=== PATIENT | male | born 1995 | race Caucasian/White ===

== ENCOUNTER 2024-10-15 17:43 | Emergency (ER) | payer OTHER, SELFPAY ==
--- OUTSIDE RECORDS SUMMARY | 2024-10-15 17:45 | XMS_ITS | Clinical Summary ---
Author Organization [facility] Address [place], [place] [address] Care Team Providers Care Binder Stripper Machine Name Role Phone Gabo Garcia Primary Care Provider [phone] Allergies No known active allergies Medications * This document contains information received from the source organization and may not represent a complete record from that organization. ondansetron (ZOFRAN ODT) 4 mg disintegrating tabletIndications:N ausea and vomiting, unspecified vomiting type Place 1 Tablet (4 mg) on the tongue every 8 hours if needed for Nausea/Vomi ting. 12 Tablet 2 Active Active Problems No known active problems Immunizations Name Administration Dates Next Due Influenza A (H1N1), Inactivated 10/16/2009 Tdap 05/18/2015 Family History Medical History Relation Name Comments Crohn's disease Mother Hemophilia Son Relation Name Status Comments Mother Son Social History Tobacco Use Types Packs/Day Years Used Date Smoking Tobacco: Never Smokeless Tobacco: Current Chew Tobacco Cessation:Ready to Q uit: Yes; Counseling Given: Yes Alcohol Use Standard Drinks/Week Comments Yes 0 (1 standard drink = 0.6 oz pur e alcohol) PHQ-2 Answer Date Recorded PHQ-2 TOTAL SCORE 0 10/08/2020 Social Connections Answer Date Recorded Frequency of Communication with Friends and Fami ly Not on file 10/02/2021 Financial Resource Strain Answer Date R ecorded Difficulty of Paying Living Expenses Not on file 10/02/2021 Difficulty of Paying Living Expenses Not on file 10/02/2021 Sex and Gender Information Value Date Recorded Sex Assigned at Not on file Legal Sex Male 7:38 AM CROSSING GUARD Gender Identity Not on file Sexual Orientation Not on file Obstetrics History Last Filed Vital Signs Vital Sign Reading Time Taken Comments Blood Pressure 148/88 02/01/2022 2:14 PM CDT Pulse 69 02/01/2022 2:14 PM CDT Temperature 37.1 C (98.8 F) 02/01/2022 2:09 PM CDT Respiratory Rate 16 10/05/2021 1:27 PM CROSSING GUARD Oxygen Saturation 99% 02/01/2022 2:09 PM CDT Inhaled Oxygen Concentration - - Weight 70.9 kg (156 lb 3.2 oz) 02/01/2022 2:09 P M CDT Height 167.7 cm (5' 6.02) 05/08/2019 4:24 PM CD T Body Mass Index 25.19 05/08/2019 4:24 PM CDT Plan of Treatment Health Maintenance Due Date Last Done Comments HIV for age 15-65 2008 Hepatitis C screening for ag e 18-79 2011 BMI (ht and wt on same day) for age 18+ 05/08/2020 05/08/2019 Depression screening for age 12+ 10/08/2021 10/08/19 21 COVID-19 vaccine series (2023- season) 2024 Influenza for age 9-49 06/02/2024 10/16/2009 Tetanus booster 05/18/2025 05/18/2015 Tdap Completed 05/18/2015 Pneumococcal series for age 6-49 Aged Out No longer eligible based on patient's age to complete this topic [place] [address] [employer] Care Teams Binder Stripper Machine Relationship Specialty Start Date End Date Gabo Garcia [address] [place] [id number] PCP - General 03/15/09
[2024-10-15 18:01] VITALS: BP 137/80; PULSE 102; RESP 18; TEMP 37.1; O2SAT 98; BMI 26.3
--- NOTE | 2024-10-15 18:04 | CRLHL7_ITS ---
For Patients: As a result of the Cures Act, medical imaging exams and procedure reports are released immediately into your electronic medical record. You may view this report before your referring provider. If you have questions, please contact your health care provider. INDICATION: Fever. Cough. COMPARISON: None available. TECHNIQUE: 2 views. FINDINGS: Medical Devices: None. Lung Volumes: Adequate inspiration. No significant atelectasis. Lungs: No evidence of pneumonia. Perihilar peribronchial cuffing consistent with bronchitis. Pleura and Pleural spaces: No significant pleural effusion. No pneumothorax. Mediastinum: Normal cardiomediastinal silhouette. Bony Thorax and Soft Tissues: No significant incidental findings. IMPRESSION: No evidence of pneumonia. Perihilar peribronchial cuffing consistent with bronchitis. Dictated by Merrill Camara MD @ 10/15/2024 7:14:30 PM (Electronically Signed)
--- NOTE | 2024-10-15 19:06 | ED.GENADULT ---
HPI - General Adult General Time Seen by Provider: 19:07 Date Seen: 10/15/24 Chief complaint: Cough Stated complaint: Difficulty Breathing Time Seen by Provider: 10/15/24 19:06 Source: patient and RN notes reviewed Mode of arrival: ambulatory Limitations: no limitations History of Present Illness HPI narrative: This 29-year-old male is coming into the ER with concern of pneumonia. He was diagnosed with influenza a yesterday. He used to take inhalers when he played hockey. He has not used any since he played hockey in school. He has been sick now since Monday, is experiencing headaches, fevers, coughing, congestion, body aches. He went to urgent care yesterday and was diagnosed with influenza A. Albuterol inhaler was sent in for him. He is wondering if he could get a steroid or something to go back to work. He did not get influenza vaccination. He wanted a chest x-ray, nursing staff did order this while patient was waiting to be roomed. He states he felt he heard a rattling in his chest earlier today. Was unaware that albuterol inhaler was sent in for him. He is not on Tamiflu. He became concerned as he had a 103 F temperature today. We did discuss fever and expectations of fever through this illness. Related Data Previous Rx's ?Medication ?Instructions ?Recorded albuterol sulfate 90 mcg/actuation 2 puff inhalation Q4-6H PRN 10/14/24 aerosol inhaler shortness of breath or wheezing #6.7 grams Allergies Allergy/AdvReac Type Severity Reaction Status Date / Time No Known Drug Allergies Allergy Verified 10/14/24 10:10 Review of Systems Status of ROS: Reports: 6 or more systems reviewed and unremarkable except as noted in History and below [facility] Social History Smoking Status: Current some day smoker Exam Const: Vital Signs, click to edit/add: Vital Signs - 24 hr 10/15/24 18:01 Temperature 98.7 F Pulse Rate [Pulse Oximeter] 102 H Respiratory Rate 18 Blood Pressure [Ri ght Upper Arm] 137/80 Pulse Oximetry 98 Oxygen Delivery Me thod Room Air This 29-year-old male is alert, interactive, no apparent distress he is coughing occasionally while I am in with him. Speech is normal, not hoarse. Pupils equal round reactive, sclera clear. TMs canals are normal. Face atraumatic, symmetrical facial function. Nares clear. Oropharynx normal mucosa, no exudates or erythema. Neck is supple, no adenopathy or masses noted. His lungs actually are clear, there is no wheezing or crackles, no tachypnea, no accessory muscle use, no concerning prolonged expiratory phase. CV regular rate and rhythm, no murmur, normal S1-S2. Documenting provider has reviewed patient's vital signs: yes Course Course ED Course: Have reviewed with patient that I do need to look at his chest x-ray and needs to be over-read by Radiology. Clinically he is not wheezing, I do not think steroids are going to benefit him at this point. We did discuss that steroids can be helpful if there is asthma and inflammatory changes causing wheezing with asthma. Right now he seems to be doing quite well. Steroids are not going to alter the course of influenza. We discussed fever management with alternating Tylenol and ibuprofen, staying hydrated. Will wait to see with chest x-ray shows, he is aware that it does need to be read by Radiology. Reevaluation(s) Time of Reevaluation #1: 19:25 Reevaluation #1: Did provide patient copy of his chest x-ray. Although there is no pneumonia, there is peribronchial cuffing consistent with bronchitis. We did review that this is viral. Antibiotics are not indicated but will consider steroids, may help decrease the inflammatory response in he does have a history of exercise-induced asthma. 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 He would like medications from [facility] which we will do, pharmacy will be closing shortly. Vital Signs Vital signs: Initial Vital Signs Temperature 98.7 F 10/15/24 18:01 Temperature Source Temporal Artery Scan 10/15/24 18:01 Pulse Rate 102 H 10/15/24 18:01 Respiratory Rate 18 10/15/24 18:01 Blood Pressure 137/80 10/15/24 18:01 Blood Pressure Mean 99 10/15/24 18:01 Pulse Oximetry 98 10/15/24 18:01 Oxygen Delivery Method Room Air 10/15/24 18:01 Vital Signs Temperature 98.7 F 10/15/24 18:01 Pulse Rate 102 H 10/15/24 18:01 Respiratory Rate 18 10/15/24 18:01 Blood Pressure 137/80 10/15/24 18:01 Pulse Oximetry 98 10/15/24 18:01 Oxygen Delivery Method Room Air 10/15/24 18:01 Temperature 98.7 F 10/15/24 18:01 Pulse Rate 102 H 10/15/24 18:01 Respiratory Rate 18 10/15/24 18:01 Blood Pressure 137/80 10/15/24 18:01 Pulse Oximetry 98 10/15/24 18:01 Oxygen Delivery Method Room Air 10/15/24 18:01 Medical Decision Making Imaging Data Chest x-ray: Attestation: I have reviewed the pertinent imaging results. Radiologist's impression: Patient: JAVON MOHAN Facility:?[facility] Patient ID:?[id number] Site Patient ID:?[id number]. Site :?[id number] Study:?XRay-Chest 2V-10/15/2024 6:42:59 PM Ordering Physician:?PROVIDER TEMP Final Report: INDICATION: Fever. Cough. COMPARISON: None available. TECHNIQUE: 2 views. FINDINGS: Medical Devices: None. Lung Volumes: Adequate inspiration. No significant atelectasis. Lungs: No evidence of pneumonia. Perihilar peribronchial cuffing consistent with bronchitis. Pleura and Pleural spaces: No significant pleural effusion. No pneumothorax. Mediastinum: Normal cardiomediastinal silhouette. Bony Thorax and Soft Tissues: No significant incidental findings. IMPRESSION: No evidence of pneumonia. Perihilar peribronchial cuffing consistent with bronchitis. Dictated by Merrill Camara MD @ 10/15/2024 7:14:30 PM (Electronic Signature) Discharge Plan Discharge Clinical Impression: Influenza A Patient Disposition: Home, Self-Care Condition: Stable Instructions: Influenza (ED) Additional Instructions: Use albuterol inhaler, 2 puffs every 4 hours as needed for coughing or wheezing. It may or may not help with the actual cough from influenza. Given your history of asthma, you certainly can try the inhaler. If it does help you diminished coughing, if you feel your wheezing and it helps, can continue using. The normal course for influenza is to have coughing and do not expect the inhaler to completely stop this. Also wrote for Prelone in you are to take 1 tsp twice a day for 5 days of this. This is a steroid and can help decrease inflammation. Your cough may improve some with this, maybe might not be as harsh. Push fluids. Use Tylenol and ibuprofen alternating per bottle directions as needed for fever and body aches. If you are not improving in the next 3-5 days, feel you are worsening at any point or have increasing respiratory symptoms, do recommend re-evaluation. Prescriptions: No Action albuterol sulfate 90 mcg/actuation HFA aerosol inhaler 2 puff inhalation Q4-6H PRN (Reason: shortness of breath or wheezing) Qty: 6.7 0RF Follow Up/Referrals: Provider,Not a Local [Primary Care Provider] - Stand Alone Forms: [employer] Info Instructions
[2024-10-15 19:33] VITALS: BP 125/74; PULSE 89; RESP 18; TEMP 37.1; O2SAT 98
[2024-10-15 19:37] VITALS: BP 125/74; PULSE 89; RESP 18; TEMP 37.1
--- OUTSIDE RECORDS SUMMARY | 2024-10-15 19:40 | XMS_ITS | Clinical Summary ---
Author Organization [employer] [facility] Address [place], [place] [address] Care Team Providers Care Viscosity Tester Name Role Phone Gabo Garcia Primary Care Provider [phone] Allergies No known active allergies Medications * [...] on file Legal Sex Male 7:38 AM COURSEWARE DEVELOPER Gender Identity Not on file Sexual Orientation Not on file Obstetrics History Last Filed Vital Signs Vital Sign Reading Time Taken Comments Blood Pressure 148/88 02/01/2022 2:14 PM CDT Pulse 69 02/01/2022 2:14 PM CDT Temperature 37.1 C (98.8 F) 02/01/2022 2:09 PM CDT Respiratory Rate 16 10/05/2021 1:27 PM COURSEWARE DEVELOPER Oxygen Saturation 99% 02/01/2022 2:09 PM CDT [...] to complete this topic Insurance MEDICA CHOICE MED[employer] CHOICE [employer] CHOICE Care Teams Viscosity Tester Relationship Specialty Start Date End Date Gabo Garcia [address] [place] [id number] PCP - General 03/15/09
== END 2024-10-15 19:38 | disposition home or self-care (01) ==
LOC: ED 19:36
PROVIDERS: Emergency Provider Family Medicine
DX: J10.1 Influenza due to other identified influenza virus with other respiratory manifestations (principal)
CPT/HCPCS: 71046; 99283; 99284